=== PATIENT | male | born 1995 | race Caucasian/White ===

== ENCOUNTER → 2016-05-11 | Outpatient (CLI) | payer OTHER ==
[~2016-05-11] VITALS: Ht 182.9 cm; Wt 97.7 kg
[~2016-05-11] MED LIST: NEURONTIN100 MG/CAP PO; ROBAXIN 50500 MG/TAB PO
[2016-05-11 09:27] VITALS: BP 137/72; PULSE 73
[2016-05-11 11:15] VITALS: BP 143/86; PULSE 64
== END ==
LOC: COL.RAD 09:00
DX: M54.5 Low back pain (principal)
CPT/HCPCS: J3301

== ENCOUNTER → 2016-06-21 | Outpatient (CLI) | payer OTHER ==
[~2016-06-21] VITALS: Ht 182.9 cm; Wt 100.0 kg
[2016-06-21 12:49] VITALS: BP 128/72; PULSE 91
[2016-06-21 14:30] VITALS: BP 142/78; PULSE 86
== END ==
LOC: COL.RAD 06-17 10:00
DX: M54.5 Low back pain (principal)
CPT/HCPCS: J3301

== ENCOUNTER → 2016-07-22 | Outpatient (CLI) | payer OTHER ==
[~2016-07-22] VITALS: Ht 182.9 cm; Wt 100.0 kg
[2016-07-22 11:17] VITALS: BP 154/72; PULSE 79
[2016-07-22 13:22] VITALS: BP 138/70; PULSE 74
[2016-07-22 13:45] VITALS: BP 155/78; PULSE 74
[2016-07-22 14:20] VITALS: BP 123/65; PULSE 76
[2016-07-22 14:45] VITALS: BP 131/75; PULSE 84
[2016-07-22 15:00] VITALS: BP 123/75; PULSE 71
== END ==
LOC: COL.RAD 10:56
DX: M54.5 Low back pain (principal)
CPT/HCPCS: J3301